=== PATIENT | male | born 2000 | race Caucasian/White ===

== ENCOUNTER 2024-02-10 12:41 | Day surgery (SDC) | payer BC ==
[~2024-02-10 12:41] MED LIST: LIDOCAINE 1% (10MG/ML) FOR IV START INTRADERMA PRN
[2024-02-10] MEDS: IV FLUID CONTINUATION 1,000 ML IV ONE (14:05)
[2024-02-10] MEDS: LACTATED RINGERS 1,000 ML IV SCH (14:19)
[2024-02-10 14:21] VITALS: TEMP 97
[2024-02-10] MEDS ORDERED: PROPOFOL 10 MG/ML 20 ML VIAL IV ONE (15:12)
[2024-02-10] MEDS ORDERED: LIDOCAINE 1% INJ 10MG/ML (20 ML MDV) ONE (15:12)
--- NOTE | 2024-02-10 15:22 | P.PCN ---
Date of Procedure: 02/10/24 Procedure(s) Performed: BRIEF HISTORY: Patient is a 23-year-old, pleasant, white male scheduled for an upper endoscopy as a part evaluation of epigastric discomfort and postprandial abdominal bloating for the last 6 months duration. He has been on Protonix 40 mg daily and since then the symptoms are gradually improving.. PROCEDURE PERFORMED: Esophagogastroduodenoscopy with biopsy. PREOPERATIVE DIAGNOSIS: Epigastric pain and postprandial abdominal bloating. IV sedation per anesthesia. PROCEDURE: After informed consent was obtained, the patient was brought into the endoscopy unit. IV sedation was administered by Anesthesia under continuous monitoring. Initially the Olympus GIF-140 video endoscope was inserted into the mouth. Esophagus intubated without any difficulty. It was gradually advanced into the stomach and duodenum and carefully examined. The bulb and the second part of the duodenum appeared normal. The scope at this time was withdrawn to the stomach, adequately insufflated with air, and upon careful examination, mucosa of the antrum, and body gastritis and biopsies were done from this area. Mucosa of the body, cardia and the fundus appeared normal. The scope was then withdrawn into the esophagus. Mild hiatal hernia noted. The GE junction was located at 39 cm from the incisors. The mucosa of the mid and distal esophagus had thickened esophageal folds with longitudinal ridges and multiple circumferential mucosal rings all suspicious for eosinophilic esophagitis and multiple biopsies were done from this area. The rest of the esophagus appeared normal. There were no erosions or ulcerations seen and the patient tolerated the procedure well. IMPRESSION: 1. Mild antral gastritis. 2. Small hiatal hernia 3. Thickened mid and distal esophageal folds with longitudinal ridges and circumferential mucosal rings suspicious for eosinophilic esophagitis s/p multiple biopsies. RECOMMENDATIONS: The findings of this examination were discussed with the patient as well as his family. He was advised to follow-up with the biopsy results. Follow-up in the office in 2 to 3 weeks based on the biopsy results. In the meantime continue with Protonix 40 mg daily and follow antireflux measures.
[2024-02-10 15:28] VITALS: BP 108/69; PULSE 59; RESP 14
== END 2024-02-10 16:00 | disposition home or self-care (01) ==
LOC: ORWHC2ENDO 12:41
PROVIDERS: ATTEND Internal Medicine Gastroenterology
DX: K29.50 Unspecified chronic gastritis without bleeding (principal); D72.10 Eosinophilia, unspecified; K44.9 Diaphragmatic hernia without obstruction or gangrene; K21.9 Gastro-esophageal reflux disease without esophagitis; J45.909 Unspecified asthma, uncomplicated; G35 Multiple sclerosis; Z79.899 Other long term (current) drug therapy; Z88.0 Allergy status to penicillin; Z88.1 Allergy status to other antibiotic agents; Z91.018 Allergy to other foods
CPT/HCPCS: 88305; 43239; J2001; J2704